=== PATIENT | female | born 1930 | race Caucasian/White ===

== ENCOUNTER 2017-02-05 11:31 | Emergency (ER) | payer MEDICARE, OTHER ==
[~2017-02-05] VITALS: Ht 152.4 cm; Wt 66.4 kg
[2017-02-05 11:38] VITALS: Ht 152.4 cm; Wt 66.4 kg
[2017-02-05] MEDS ORDERED: SOD CHLORIDE 0.9% 1,000 ML IV STA (12:03)
--- NOTE | 2017-02-05 12:03 | ERD ---
ER Documentation Chief Complaint Chief Complaint SUDDEN WEAKNESS WITH ELEVATED BP WHILE AT 'S OFFICE HPI 86-year-old woman here for feeling weak intermittently for the last 2 days, she states she had difficulty walking up her stairs today because she felt so weak. She states she was recently diagnosed with a urinary tract infection and is currently using cephalexin daily as prescribed 2 days. She states she does have a history of paroxysmal atrial fibrillation and last time this happened she was diagnosed with atrial fibrillation and had to be admitted but she denies chest pain or palpitations at this time. Patient denies fevers or chills , no chest pain or shortness of breath, no loss of consciousness, no headache or blurry vision, denies pack pain, no recent weight loss, no hematuria ROS All systems reviewed and are negative except as per history of present illness. Medications Home Meds Reported Medications Levothyroxine Sodium* (Levothyroxine Sodium*) 150 Mcg Tablet, 150 MCG PO BEFORE BREAKFAST, #30 TAB 02/05/17 Memantine* (Namenda*) 10 Mg Tablet, 10 MG PO DAILY, #30 TAB 02/05/17 Hydralazine Hcl* (Hydralazine Hcl*) 25 Mg Tab, 50 MG PO BID, #60 TAB 02/05/17 Calcium Carbonate ([id number]) 500 Mg Tablet, 500 MG PO BID, TAB 02/05/17 Amitriptyline Hcl* (Amitriptyline Hcl*) 25 Mg Tablet, 25 MG PO QHS, #30 TAB 02/05/17 Diltiazem Hcl* (Cartia XT*) 120 Mg Cap.sr.24h, 120 MG PO DAILY, #30 CAP 02/05/17 Dronedarone Hydrochloride* (Multaq*) 400 Mg Tablet, 400 MG PO DAILY, TAB 02/05/17 Allergies Allergies: Coded Allergies: ciprofloxacin (Verified Allergy, Mild, UNKNOWN, 02/05/17) PMhx/Soc h/o Bladder carcinoma s/p R nephrectomy, HTN, recurrent UTIs FmHx Family History: No diabetes Physical Exam Vitals Vital Signs Date Time Temp Pulse Resp B/P Pulse Ox O2 Delivery O2 Flow Rate FiO2 02/05/17 15:14 98.1 72 17 169/87 99 Room Air 02/05/17 13:55 68 17 178/89 99 Room Air 02/05/17 11:38 98.1 74 16 195/81 99 Physical Exam GENERAL: Well-developed, well-nourished, well-hydrated, in no apparent distress , looks nontoxic in appearance HEENT: Moist mucous membranes, pink conjunctiva, no cervical spine tenderness or step-off deformities, no goiter, no jaundice or icterus, extraocular movements intact without pain. No submandibular induration, and no pharyngeal erythema NEURO: Alert and oriented 3, cranial nerves II through XII intact bilaterally, pupils equal round reactive to light, no focal deficits or facial asymmetry, sensation intact distally Strength 5/5 in upper and lower extremities bilaterally CARDIAC: Regular rate and rhythm, no murmurs rubs or gallops LUNGS: Clear bilaterally no wheezing crackles or stridor ABDOMEN: Soft nontender, no guarding, no rigidity, no rebound, no psoas sign no obturator sign. Normoactive bowel sounds SKIN: Warm and dry to touch, no abrasions, contusions, or hematomas, no lacerations, no ecchymosis, no target lesions, and without ulcers EXTREMITIES: No clubbing cyanosis or edema, calves are bilaterally symmetrical, no Homans sign, no popliteal cord sign. Distal pulses equal and bilateral PSYCH: Normal affect without agitation or irritability Result Diagram: 02/05/17 1210 02/05/17 1210 Results 24 hrs Laboratory Tests Test 02/05/17 12:10 02/05/17 13:00 White Blood Count 7.310^3/ul Red Blood Count 4.8010^6/ul Hemoglobin 14.3g/dl Hematocrit 42.7% Mean Corpuscular Volume 89.0fl Mean Corpuscular Hemoglobin 29.8pg Mean Corpuscular Hemoglobin Concent 33.5g/dl Red Cell Distribution Width 13.7% Platelet Count 70578^3/UL Mean Platelet Volume 10.4fl Neutrophils % 80.0% Lymphocytes % 11.9% Monocytes % 6.7% Eosinophils % 0.3% Basophils % 0.8% Nucleated Red Blood Cells % 0.0/100WBC Neutrophils # 5.910^3/ul Lymphocytes # 0.910^3/ul Monocytes # 0.510^3/ul Eosinophils # 0.010^3/ul Basophils # 0.110^3/ul Nucleated Red Blood Cells # 0.010^3/ul Sodium Level 138mmol/L Potassium Level 4.2mmol/L Chloride Level 102mmol/L Carbon Dioxide Level 24mmol/L Anion Gap 16 Blood Urea Nitrogen 26mg/dl Creatinine 1.65mg/dl Glucose Level 108mg/dl Calcium Level 9.8mg/dl Total Bilirubin 0.1mg/dl Direct Bilirubin 0.00mg/dl Indirect Bilirubin 0.1mg/dl Aspartate Amino Transf (AST/SGOT) 25IU/L Alanine Aminotransferase (ALT/SGPT) 29IU/L Alkaline Phosphatase 114IU/L Troponin I 0.014ng/ml Total Protein 7.9g/dl Albumin 4.7g/dl Globulin 3.20g/dl Albumin/Globulin Ratio 1.46 Lipase 232U/L Urine Color YELLOW Urine Clarity CLEAR Urine pH 7.0 Urine Specific [place] 1.008 Urine Ketones TRACEmg/dL Urine Nitrite NEGATIVEmg/dL Urine Bilirubin NEGATIVEmg/dL Urine Urobilinogen NEGATIVEmg/dL Urine Leukocyte Esterase TRACELeu/ul Urine Microscopic RBC 1/HPF Urine Microscopic WBC 5/HPF Urine Hemoglobin NEGATIVEmg/dL Urine Glucose NEGATIVEmg/dL Urine Total Protein NEGATIVEmg/dl Current Medications Medications (Trade) Dose Ordered Sig/Emmett Route PRN Reason Start Time Stop Time Status Last Admin Dose Admin Sodium Chloride (NS) 1,000 ml @ 1,000 mls/hr Q1H STAT IV 02/05/17 12:03 02/05/17 13:02 DC 02/05/17 12:25 Procedures/[facility] IV line was established patient was placed on grinder outside diameter rhythm strip revealed a sinus rhythm at about 70 bpm with upright P and T waves. Patient was afebrile EKG performed, read by me: 69 bpm, normal sinus rhythm, normal axis, no acute ST segment changes, narrow QRS complex, with good R-wave progression in precordial leads. I administered 1 L normal saline intravenously for suspected dehydration. CBC was unremarkable, urine analysis appears clean at this time, electrolytes revealed dehydration with a BUN/creatinine of 26/1.7, liver function tests normal, troponin negative. Differential diagnoses considered, included but not limited to acute coronary syndrome, pulmonary embolism, aortic dissection, abdominal aortic aneurysm, sepsis, stroke, meningitis, encephalitis, pneumonia, appendicitis, cholecystitis , bowel obstruction, pyelonephritis, nephrolithiasis, cystitis, as well as metabolic, hematologic, and electrolyte abnormalities. As well as abscess, cellulitis, fractures, and dislocations. Patient feels much better at this time, and vital signs are normal, symptoms have improved. I did give strict instructions to return to the ED if symptoms continue or worsen, patient will otherwise follow-up with primary care physician. Patient understood instructions and agreed to plan. Disclaimer: Inadvertent spelling and grammatical errors are likely due to EHR/ dictation software use and do not reflect on the overall quality of patient care. Also, please note that the electronic time recorded on this note does not necessarily reflect the actual time of the patient encounter. Departure Diagnosis: Primary Impression: Acute weakness Additional Impressions: Hypertension Hypertension type: essential hypertension Qualified Code: I10 - Essential hypertension UTI (urinary tract infection) Urinary tract infection type: acute cystitis Hematuria presence: without hematuria Qualified Code: N30.00 - Acute cystitis without hematuria Condition: SHIRLEY Henderson MD Feb 05, 2017 12:03
[2017-02-05 12:29] LABS: BASOPHIL # 0.1 10^3/ul (0.0-0.1); BASOPHILS % 0.8 % (0.0-2.0); EOSINOPHILS % 0.3 % (0.0-7.0); HEMATOCRIT 42.7 % (37.0-47.0); HEMOGLOBIN 14.3 g/dl (12.0-16.0); LYMPHOCYTES # 0.9 10^3/ul (0.8-2.9); LYMPHOCYTES % 11.9 % (15.0-51.0); MEAN CORPUSCULAR HEMOGLOBIN 29.8 pg (29.0-33.0); MEAN CORPUSCULAR HGB CONC 33.5 g/dl (32.0-37.0); MEAN PLATELET VOLUME 10.4 fl (7.4-10.4); MONOCYTE # 0.5 10^3/ul (0.3-0.9); MONOCYTES % 6.7 % (0.0-11.0); NEUTROPHIL # 5.9 10^3/ul (1.6-7.5); PLATELET COUNT 266 10^3/UL (140-415); RED CELL DISTRIBUTION WIDTH 13.7 % (11.5-14.5); WHITE BLOOD COUNT 7.3 10^3/ul (4.8-10.8)
[2017-02-05 13:03] LABS: ALBUMIN 4.7 g/dl (3.3-4.9); ALBUMIN/GLOBULIN RATIO 1.46; BILIRUBIN,INDIRECT 0.1 mg/dl (0-1.1); BILIRUBIN,TOTAL 0.1 mg/dl (0.2-1.3); CALCIUM 9.8 mg/dl (8.4-10.2); CREATININE 1.65 mg/dl (0.44-1.00); POTASSIUM 4.2 mmol/L (3.5-5.1); TOTAL PROTEIN 7.9 g/dl (6.1-8.1)
[2017-02-05 13:14] LABS: TROPONIN-I 0.014 ng/ml (0.00-0.12)
[2017-02-05 13:16] LABS: ADD UMIC YES; UR ASCORBIC ACID NEGATIVE (NEGATIVE); UR BILIRUBIN (Dip) NEGATIVE (NEGATIVE); UR BLOOD (Dip) NEGATIVE (NEGATIVE); UR CLARITY CLEAR (CLEAR); UR COLOR YELLOW (YELLOW); UR GLUCOSE (Dip) NEGATIVE (NEGATIVE); UR KETONES (Dip) TRACE mg/dL (NEGATIVE); UR LEUKOCYTE ESTERASE (Dip) TRACE Leu/ul (NEGATIVE); UR NITRITE (Dip) NEGATIVE (NEGATIVE); UR RBC 1 /HPF (0-5); UR SPECIFIC GRAVITY (Dip) 1.008 (1.003-1.030); UR TOTAL PROTEIN (Dip) NEGATIVE (NEGATIVE); UR UROBILINOGEN (Dip) NEGATIVE (NEGATIVE)
[2017-02-05] MEDS ORDERED: DRON400T2 PO (13:36)
[2017-02-05] MEDS ORDERED: DILT120C62 PO (13:36)
[2017-02-05] MEDS ORDERED: AMIT25TA9 PO (13:37)
[2017-02-05] MEDS ORDERED: CALC500T91 PO (13:37)
[2017-02-05] MEDS ORDERED: HYDR-3671 PO (13:37)
[2017-02-05] MEDS ORDERED: MEMA10TA16 PO (13:38)
[2017-02-05] MEDS ORDERED: LEVO150T67 PO (13:39)
[2017-02-05 15:14] VITALS: BP 169/87; PULSE 72; RESP 17; TEMP 98.1
== END 2017-02-05 15:15 | disposition home or self-care (01) ==
LOC: E/R 11:31
DX: N30.00 Acute cystitis without hematuria (principal); I10 Essential (primary) hypertension; R40.2142 Coma scale, eyes open, spontaneous, at arrival to emergency department; R40.2252 Coma scale, best verbal response, oriented, at arrival to emergency department; R40.2362 Coma scale, best motor response, obeys commands, at arrival to emergency department
CPT/HCPCS: 36415; 80053; 81001; 83690; 84484; 85025; 87086; 93005; 99284; J7030